=== PATIENT | male | born 2000 | race Caucasian/White ===

== ENCOUNTER 2024-06-29 22:30 | Emergency (ER) | payer SELFPAY ==
[2024-06-29 22:40] VITALS: BP 100/62; PULSE 97; RESP 20; TEMP 36.8; O2SAT 96; BMI 20.5
--- NOTE | 2024-06-30 01:34 | ED.GENADULT ---
HPI - General Adult General Chief complaint: Animal Bite Stated complaint: ankle swelling s/p bee sting Time Seen by Provider: 06/30/24 01:28 Source: patient, RN notes reviewed and old records reviewed Mode of arrival: ambulatory Limitations: no limitations History of Present Illness ED Provider: Anatoliy HPI narrative: 24-year-old male presents for evaluation of bee stings. Patient reports that he was stung on his right ankle and left forearm 3 days ago. He has no known history of any allergy or reaction to bee stings. Patient states that since the bee sting his right ankle and left forearm have become more swollen, red and painful Specifically his right ankle is painful with walking He denies any fevers or chills He use Benadryl at home yesterday with no improvement in his symptoms No other complaints or concerns. Denies any difficulty breathing, shortness of breath Related Data Previous Rx's ?Medication ?Instructions ?Recorded cephalexin 500 mg tablet 500 mg PO QID #28 tabs 06/30/24 Allergies Allergy/AdvReac Type Severity Reaction Status Date / Time No Known Allergies Allergy Verified 06/29/24 22:44 Review of Systems Constitutional: Constitutional: Denies body ache(s), Denies chills and Denies fever(s) Eyes: Eyes: Denies blurry vision ENT: Denies sore throat Cardiovascular: Cardiovascular: Denies chest pain and Denies dyspnea Respiratory: Respiratory: Denies cough and Denies dyspnea Gastrointestinal: Gastrointestinal: Denies abdominal pain, Denies nausea and Denies vomiting Musculoskeletal: Musculoskeletal: Denies back pain Integumentary/Breasts: Skin/Breast: Reports erythema and Reports rash PMFSH Social History Social History Advance Directives: No Advance Directives Information Provided: Yes Physical Exam ED Vital Signs: Vital Signs - 24 hr 06/29/24 22:40 Temperature 98.3 F Pulse Rate 97 Respiratory Rate 20 Blood Pressure 100/62 Pulse Oximetry 96 Oxygen Delivery Method Room Air BMI result Body Mass Index 20.5 Const General: healthy appearing, comfortable, no acute distress, alert and awake Nutritional Appearance: well nourished Orientation/consciousness: patient oriented x3 HENMT Head: Yes normocephalic and Yes atraumatic Eyes Eyelids: Yes eyelids normal Conjunctivae: conjunctivae normal Sclerae: sclerae normal Corneas: corneas normal Pupils: Equal, round and reactive pupils present EOM: EOMs intact bilaterally Neck Neck: Yes full ROM Resp Effort & Inspection: normal respiratory effort, able to speak in complete sentences and not labored Skin Other: Patient has a puncture wound to the right medial ankle with surrounding erythema, there is no significant increased warmth. There is edema pitting edema to the right ankle at the patient's psych line extending up to the mid calf. There is a similar puncture wound to the left forearm, no significant erythema to the left forearm but there is minimal edema. General skin exam: elasticity normal Neuro General: patient oriented x3 Cranial nerves: Yes Equal, round and reactive pupils present and Yes Bilaterally intact EOM present Cognition (Neuro): normal cognition Extrem Other: Moving all extremities well without any obvious deformities Medical Decision Making Medical Decision Making MDM Narrative: Patient appears to have a localized reaction to the bee stings that he suffered 3 days ago. There was no evidence of anaphylaxis. I have a very low suspicion for cephalexin. However the patient did not respond to Benadryl. 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 Differential Diagnosis Differential Diagnoses: The differential diagnosis associated with the presentation includes Bee sting Cellulitis Insect bite Allergic reaction Discharge Plan Discharge Clinical Impression: Bee sting Patient Disposition: Home, Self-Care Instructions: Insect Bite or Sting (ED) Additional Instructions: Take Benadryl 25 mg every 6 hours for at least through tomorrow I prescribed an antibiotic that you may start if the Benadryl does not improve the redness and swelling around the bee sting You may use ice packs and elevation to help with the swelling Follow-up with your primary doctor, return for new or worsening symptoms Prescriptions: New cephalexin 500 mg tablet 500 mg PO QID Qty: 28 0RF Stand Alone Forms: Work/School Release Print Language: Lithuanian
[2024-06-30 02:05] VITALS: BP 118/84; PULSE 78; RESP 16; TEMP 36.6; O2SAT 97
== END 2024-06-30 02:06 | disposition home or self-care (01) ==
PROVIDERS: Emergency Provider Internal Medicine
DX: S91.051A Open bite, right ankle, initial encounter (principal); W57.XXXA Bitten or stung by nonvenomous insect and other nonvenomous arthropods, initial encounter; Y93.89 Activity, other specified; Y92.89 Other specified places as the place of occurrence of the external cause; Y99.8 Other external cause status
CPT/HCPCS: 99282; 99283